=== PATIENT | male | born 1970 | race African-American/Black ===

== ENCOUNTER 2024-04-06 10:49 | Emergency (ER) | payer OTHER, MEDICAID, SELFPAY ==
[2024-04-06 10:49] VITALS: BP 144/95; PULSE 70; RESP 14; TEMP 36.1; O2SAT 99; BMI 31.4
--- NOTE | 2024-04-06 11:19 | EX.ED.GENINJ ---
HPI History of Present Illness Chief Complaint: Burn Informant: patient Narrative Narrative: 54-year-old male was at work today and was going to clean the air Fryer which had just been used to cook chicken. He states that his hands left and submerged it into the cooking oil. He notes it was about 360 degrees. Patient notes pain over his index long ring and little fingers. He states his thumb feels okay. He states it feels like his fingers are on fire. Tetanus Immunization: 5-10 years PFSH PFSH Home Medications ?Medication ?Instructions ?Recorded ?Last Taken ?Type bacitracin 500 unit/gram topical 1 applic topical BID 5 days #30 04/06/24 Unknown Rx ointment grams oxycodone-acetaminophen 5 mg-325 1 tab PO Q6H PRN PRN pain 5 days 04/06/24 Unknown Rx mg tablet #20 TABLETS Allergy/AdvReac Type Severity Reaction Status Date / Time No Known Allergies Allergy Verified 04/06/24 10:50 ROS ROS ED Constitutional Constitutional ED: Denies chills, fever(s) or weight loss Eyes Eyes: Denies change in vision or diplopia ENT ENT ED: Denies ear pain, rhinorrhea or sore throat Cardiovascular Cardiovascular: Denies chest pain, orthopnea, palpitations or racing heartbeat Respiratory/Chest Respiratory/Chest: Denies cough, dyspnea or orthopnea Gastrointestinal Gastrointestinal: Denies abdominal pain, diarrhea, nausea or vomiting Genitourinary Genitourinary ED: Denies dysuria, hematuria or urinary frequency Musculoskeletal Musculoskeletal: Denies arthralgias or myalgias Integumentary Reports other Details: See history of present illness ; Denies abscess or rash Neurologic Neurologic: Denies headache(s) or weakness Psychiatric Psychiatric: Denies anxiety, depression, suicidal ideation or suicidal thoughts Endocrine Endocrinology: Denies polydipsia, polyphagia or polyuria Allergic/Immunologic Allergic/Immunologic ED: Denies mouth swelling, tongue swelling or urticaria EXAM Physical Exam Const Vital Signs: 04/06/24 10:49 Temperature 97 F L Temperature Source Temporal Pulse Rate 70 Respiratory Rate 14 Blood Pressure 144/95 H Blood Pressure Mean 111 Pulse Ox 99 Oxygen Delivery Method Room Air Positive well nourished and well developed General Appearance ED: well developed HEENT Reports normocephalic, head/scalp atraumatic and moist mucous membranes Eyes PERRL and EOMs intact bilaterally Neck no lymphadenopathy, supple and no JVD Resp normal respiratory effort and clear to auscultation bilaterally Cardio regular rate, regular rhythm and no murmurs GI normal to inspection, nondistended, normoactive bowel sounds and non-tender Palpation: soft Back/Spine no CVA tenderness and normal ROM Extremity Extremity Narrative: Patient has mild edema of the index long ring and little finger of the left hand. I do not appreciate any blister formation. He has excellent capillary refill of the digits. Painful range of motion. No obvious deformities. General Extremety ED: Negative for edema General Extremity: Negative for edema Neuro oriented x3 and CN's II-XII intact bilaterally Sensorium / Orientation: alert Motor Exam: strength 5/5 throughout Psych mental status grossly normal Mood & Affect: Negative for depressed or tearful Skin no rashes or lesions noted and no wounds MDM MDM MDM Narrative Medical decision making narrative: Patient received Percocet for pain control. Ice packs were applied. Wounds will be dressed with bacitracin and sterile L[place]. He will need to follow-up at the [facility]. I will be writing for home pain medication as well as bacitracin. Patient will monitor for changes in his capillary refill and signs of compartment syndrome which we discussed. History & Record Review Discussion w/independent historian: Patient Discharge Plan Triage Chief Complaint: Burn ED Provider: Reji Mccord Dx/Rx/DC Orders Clinical Impression: Thermal burn, Hand pain, left Instructions: Burn Emergencies Prescriptions: New oxycodone-acetaminophen 5-325 mg tablet 1 tab PO Q6H PRN PRN (Reason: pain) 5 Days Qty: 20 0RF bacitracin 500 unit/gram ointment 1 applic topical BID 5 Days Qty: 30 1RF Referrals: [facility] [Non-Staff] - 3-5 Days Print Language: Occitan Disposition Disposition: Home, Self Care
[2024-04-06 12:49] VITALS: BP 146/68; PULSE 84; RESP 16; O2SAT 99
[2024-04-06] MEDS: Oxycodone/Apap 5/325 Tablet PO (13:10)
[2024-04-06 13:14] VITALS: BP 170/72; PULSE 88; RESP 16; TEMP 36.6; O2SAT 99
== END 2024-04-06 13:15 | disposition home or self-care (01) ==
PROVIDERS: Emergency Provider Emergency Medicine; Visit Provider Emergency Medicine
DX: T23.002A Burn of unspecified degree of left hand, unspecified site, initial encounter (principal); X10.2XXA Contact with fats and cooking oils, initial encounter; Y99.0 Civilian activity done for income or pay
CPT/HCPCS: 99282